=== PATIENT | female | born 1940 | race Caucasian/White ===

== ENCOUNTER → 2017-07-19 | Outpatient (CLI) | payer OTHER | LOC: HYPER 07:03 | DX: E11.621 Type 2 diabetes mellitus with foot ulcer (principal); L97.521 Non-pressure chronic ulcer of other part of left foot limited to breakdown of skin; Z79.84 Long term (current) use of oral hypoglycemic drugs; E11.36 Type 2 diabetes mellitus with diabetic cataract; E78.5 Hyperlipidemia, unspecified; I10 Essential (primary) hypertension; M19.90 Unspecified osteoarthritis, unspecified site; F32.9 Major depressive disorder, single episode, unspecified; M81.0 Age-related osteoporosis without current pathological fracture ==

== ENCOUNTER → 2017-11-01 | Outpatient (CLI) | payer OTHER | LOC: HYPER 10-25 11:24 | DX: E11.621 Type 2 diabetes mellitus with foot ulcer (principal); L97.521 Non-pressure chronic ulcer of other part of left foot limited to breakdown of skin; E11.69 Type 2 diabetes mellitus with other specified complication; E11.36 Type 2 diabetes mellitus with diabetic cataract; E78.5 Hyperlipidemia, unspecified; M19.90 Unspecified osteoarthritis, unspecified site; F32.9 Major depressive disorder, single episode, unspecified; M81.0 Age-related osteoporosis without current pathological fracture; Z79.84 Long term (current) use of oral hypoglycemic drugs ==